=== PATIENT | female | born 1965 | race Caucasian/White ===

== ENCOUNTER 2016-07-03 15:05 | Emergency (ER) | payer OTHER ==
[~2016-07-03] VITALS: Ht 157.5 cm; Wt 72.7 kg
[~2016-07-03 15:05] MED LIST: IBUPROFEN400 MG PO; OCELLA TABLET1 EACH PO
[2016-07-03] MEDS ORDERED: TRAMADOL HCL50 MG PO (16:47)
[2016-07-03] MEDS ORDERED: NAPROSYN500 MG PO (16:47)
[2016-07-03 17:05] VITALS: BP 145/82
== END 2016-07-03 17:55 | disposition home or self-care (01) ==
LOC: EME 15:05
PROC: 3E0234Z Introduction of Serum, Toxoid and Vaccine into Muscle, Percutaneous Approach (ICD-10-PCS; principal; 2016-07-03)
DX: S80.02XA Contusion of left knee, initial encounter (principal); W18.39XA Other fall on same level, initial encounter; Y93.01 Activity, walking, marching and hiking; Y92.828 Other wilderness area as the place of occurrence of the external cause; Z23 Encounter for immunization
CPT/HCPCS: 73564; 99281; 99283